=== PATIENT | female | born 1940 | race Caucasian/White ===

== ENCOUNTER 2017-11-25 22:36 | Inpatient (IN) | payer MEDICARE, BC ==
[~2017-11-25] VITALS: Ht 5367.7 cm; Wt 72.3 kg
[2017-11-26 01:05] LABS: PROTHROMBIN TIME 10.2 SECONDS (9.0-12.0)
[2017-11-26 01:09] LABS: ALANINE AMINOTRANSFERASE 66 U/L (12-78); ALBUMIN 3.8 G/DL (3.4-5.0); ANION GAP 10 (8-16); ASPARTATE AMINO TRANSFERASE 121 U/L (10-37); BLOOD UREA NITROGEN 32 MG/DL (7-18); CALCIUM 9.4 MG/DL (8.5-10.1); CHLORIDE 105 MMOL/L (99-107); GLUCOSE 142 MG/DL (70-104); LIPASE 127 U/L (73-393); POTASSIUM 3.9 MMOL/L (3.5-5.1); SODIUM 144 MMOL/L (135-145); TOTAL CARBON DIOXIDE 28.7 MMOL/L (24-32); eGFR 54 ML/MIN
[2017-11-26 01:15] LABS: CLARITY,URINE SLIGHTLY CLOUDY (Clear); COLOR,URINE YELLOW (Yellow); GLUCOSE, URINE NEGATIVE (Neg); KETONES,URINE TRACE mg/dl (Neg); LEUKOCYTE ESTERASE ,URINE SMALL (Neg); NITRITES, URINE NEGATIVE (Neg); OCCULT BLOOD,URINE MODERATE (Neg); PROTEIN,URINE NEGATIVE (Neg); UROBILINOGEN,URINE 0.2 E.U/dL (0.2-1.0)
[2017-11-26 01:16] LABS: BASOPHILS % (AUTO) 0.1 % (0-1); EOSINOPHILS # (AUTO) 0.1 X10'3 (0-0.9); EOSINOPHILS % (AUTO) 1.1 % (0-6); HEMATOCRIT 43.5 % (35.0-45.0); HEMOGLOBIN 14.3 g/dl (12.0-16.0); LYMPHOCYTES % (AUTO) 8.8 % (21-51); MEAN CORPUSCULAR HEMOGLOBIN 30.7 PG (27.0-31.0); MEAN CORPUSCULAR HGB CONC 32.9 % (33.0-36.5); MEAN CORPUSCULAR VOLUME 93.3 FL (78-98); MEAN PLATELET VOLUME 8.7 FL (7.4-10.4); MONOCYTES # (AUTO) 0.7 X10'3 (0-0.9); MONOCYTES % (AUTO) 6.1 % (2-12); NEUTROPHILS # (AUTO) 9.7 X10'3 (1.8-7.7); NEUTROPHILS % (AUTO) 83.9 % (42-75); PLATELET COUNT 295 X10'3 (140-440); RED BLOOD COUNT 4.66 X10'6 (4.20-5.60); WHITE BLOOD COUNT 11.5 X10'3 (4.5-11.0)
[2017-11-26 01:17] LABS: UA COLLECTION TYPE CLN CATCH MIDSTREAM
[2017-11-26 01:22] LABS: ALBUMIN/GLOBULIN RATIO 1.1 (1.1-1.5); ALKALINE PHOSPHATASE 63 IU/L (46-116); BILIRUBIN,TOTAL 0.7 MG/DL (0.1-1.0); TOTAL PROTEIN 7.2 G/DL (6.4-8.2)
[2017-11-26 01:30] LABS: BACTERIA,URINE 2+ /HPF (Neg); MUCUS STRANDS MANY /LPF (Neg); SQUAMOUS EPITHELIAL CELL,UR MANY /LPF (FEW)
[2017-11-26] MEDS ORDERED: normal saline 1000ml 1,000 ML IV ONE ×2 (01:40→02:20)
[2017-11-26] MEDS ORDERED: ondansetron/PF 4mg/2ml inj IV PRN (02:20)
[2017-11-26] MEDS ORDERED: piperacillin/tazo 3.375gm/50ml 50 ML IV ONE (02:20)
[2017-11-26] MEDS ORDERED: magnesium Cl slow-release 64mg tablet PO PRN (02:20)
[2017-11-26] MEDS ORDERED: potassium Cl 40MEQ/NS 500ml 500 ML IV PRN ×2 (02:20)
[2017-11-26] MEDS ORDERED: potassium Cl 20 mEq SR tablet PO PRN ×2 (02:20)
[2017-11-26] MEDS ORDERED: magnesium hydroxide 30ml (MOM) UD suspension PO PRN (02:20)
[2017-11-26] MEDS ORDERED: acetaminophen 325mg tablet PO PRN (02:20)
[2017-11-26] MEDS ORDERED: magnesium 2GM in 50ml NS 50 ML IV PRN (02:20)
[2017-11-26] MEDS ORDERED: magnesium 4gm in 100ml NS 100 ML IV PRN (02:20)
[2017-11-26] MEDS ORDERED: HYDROmorphone inj. 0.5 MG/0.5 ML DISP.SYRIN IV PRN ×2 (02:20)
[2017-11-26] MEDS ORDERED: mag hydrox/Alum hydrox/simeth 30ml oral suspension PO PRN (02:20)
[2017-11-26] MEDS ORDERED: levoFLOXACIN-Levaquin 500mg/D5 100 ML IV SCH (02:42)
[2017-11-26] MEDS: normal saline 1000ml 1,000 ML IV SCH ×2 (02:54→12:16)
[2017-11-26 03:01] LABS: TOTAL CELLS COUNTED 100
[2017-11-26 03:02] LABS: LARGE PLATELETS FEW; PLATELET ESTIMATE NORMAL
[2017-11-26] MEDS ORDERED: PRIM50TA PO (07:21)
[2017-11-26] MEDS ORDERED: ATOR40TA PO (07:21)
[2017-11-26] MEDS ORDERED: FENO48TA15 PO (07:21)
[2017-11-26] MEDS ORDERED: BENA20TA2 PO (07:21)
[2017-11-26] MEDS ORDERED: PROP10TA10 PO (07:21)
[2017-11-26] MEDS ORDERED: MIRT15TA PO (07:21)
[2017-11-26] MEDS ORDERED: K and/or MAG REPLACEMENT MC SCH (08:00)
[2017-11-26] MEDS ORDERED: lactobacillus rhamnosus 10,000 MMU CELLS/CAPSULE PO SCH (08:00)
[2017-11-26 08:01] VITALS: BP 133/76
[2017-11-26] MEDS ORDERED: primidone 50mg tablet PO SCH (13:00)
[2017-11-26 14:00] LABS: BASOPHILS % (AUTO) 0.1 % (0-1); EOSINOPHILS # (AUTO) 0.1 X10'3 (0-0.9); EOSINOPHILS % (AUTO) 2.9 % (0-6); HEMOGLOBIN 12.1 g/dl (12.0-16.0); LYMPHOCYTES # (AUTO) 0.2 X10'3 (1.1-4.8); LYMPHOCYTES % (AUTO) 8.2 % (21-51); MEAN CORPUSCULAR HEMOGLOBIN 31.5 PG (27.0-31.0); MEAN CORPUSCULAR HGB CONC 34.5 % (33.0-36.5); MEAN CORPUSCULAR VOLUME 91.5 FL (78-98); MEAN PLATELET VOLUME 8.1 FL (7.4-10.4); MONOCYTES # (AUTO) 0.2 X10'3 (0-0.9); NEUTROPHILS # (AUTO) 2.2 X10'3 (1.8-7.7); NEUTROPHILS % (AUTO) 79.8 % (42-75); PLATELET COUNT 210 X10'3 (140-440); RED BLOOD COUNT 3.83 X10'6 (4.20-5.60); RED CELL DISTRIBUTION WIDTH 13.8 % (11.5-14.5)
[2017-11-26 14:06] LABS: WHITE BLOOD COUNT 2.7 X10'3 (4.5-11.0)
[2017-11-26 14:30] LABS: TOTAL CELLS COUNTED 100
[2017-11-26 14:31] LABS: PLATELET ESTIMATE NORMAL
[2017-11-26] MEDS ORDERED: METR500T PO (15:58)
[2017-11-26] MEDS ORDERED: propranolol 10mg tablet PO SCH (20:00)
[2017-11-27] MEDS ORDERED: lisinopril 20mg tablet PO SCH (08:00)
== END 2017-11-26 17:31 | disposition home or self-care (01) | DRG 445 ==
LOC: ER 22:38 → ED HOLD 11-26 02:16 → SUR 3N 11-26 07:41
PROVIDERS: ADMIT Internal Medicine; ATTEND Internal Medicine
DX: K80.00 Calculus of gallbladder with acute cholecystitis without obstruction (principal); N17.9 Acute kidney failure, unspecified; E86.0 Dehydration; N39.0 Urinary tract infection, site not specified; E78.00 Pure hypercholesterolemia, unspecified; F32.9 Major depressive disorder, single episode, unspecified; M19.90 Unspecified osteoarthritis, unspecified site; R31.9 Hematuria, unspecified; E78.5 Hyperlipidemia, unspecified; K21.9 Gastro-esophageal reflux disease without esophagitis; Z90.49 Acquired absence of other specified parts of digestive tract; Z90.710 Acquired absence of both cervix and uterus; Z88.7 Allergy status to serum and vaccine; Z91.040 Latex allergy status; Z79.899 Other long term (current) drug therapy
CPT/HCPCS: 36415; 76705; 80053; 81001; 83605; 83690; 85025; 85610; 87040; J1956; J2543; J7030